=== PATIENT | female | born 1975 | race Asian ===

== ENCOUNTER 2023-08-20 15:47 | Emergency (ER) | payer BC ==
[2023-08-20 15:56] VITALS: BP 121/68; O2SAT 98
--- NOTE | 2023-08-20 15:57 | ED Physician Documentation ---
PD HPI UPPER EXT INJURY - Stated complaint Stated Complaint: R FINGER LAC - Chief complaint Chief Complaint: Laceration - History obtained from History obtained from: Patient - History of Present Illness Location: Right, Finger (thumb) Type of injury: Laceration (cut tip/side of thumb with kitchen utensil at home with avulsion of small portion of skin, but wound will not stop bleeding.) Where injury occurred: Home Timing - onset: How many hours ago (1), Today Timing - details: Abrupt onset, Still present (wound still bleeding steady drip if not direct pressure held.) Review of Systems Neurologic: denies: Focal weakness, Numbness PD PAST MEDICAL HISTORY - Past Medical History Past Medical History: No Neuro: None - Past Surgical History Past Surgical History: No - Allergies Allergies/Adverse Reactions: Allergies Allergy/AdvReac Type Severity Reaction Status Date / Time No Known Drug Allergies Allergy Verified 08/20/23 15:51 - Social History Does the pt smoke?: No Smoking Status: Never smoker Does the pt drink ETOH?: No Does the pt have substance abuse?: No - Immunizations Immunizations are current?: No Immunizations: TDAP >10years/unknown - POLST Patient has POLST: No PD ED PE NORMAL - Vitals Vital signs reviewed: Yes - General General: Alert and oriented X 3, Well developed/nourished - Extremities Extremities: Other (right thumb ulnar side distal tip with avulsion of skin partial thickness with steady oozing of blood if pressure not held. no FB. Not in nailbed. it is about 3x9 mm size. ) - Neuro Neuro: No motor deficit, No sensory deficit Results - Vitals Vitals: Vital Signs - 24 hr 08/20/23 15:51 Temperature 36.5 C Heart Rate 84 Respiratory 16 Rate Blood Pressure 121/68 O2 Saturation 98 Oxygen O2 Source Room air PD Medical Decision Making - ED course Complexity details: considered differential (avulsion of skin to capillary/small vessel layer with ongoing bleeding. Local anesth with Lido decreased bleeding and then cautery of the area stopped bleeding. Xeroform dressing and pressure wrap with coban done. No bleeding. ), d/w patient Departure - Departure Disposition: 01 Home, Self Care Clinical Impression: Skin avulsion Condition: Stable Record reviewed to determine appropriate education?: Yes Instructions: ED Avulsion Dermal Follow-Up: RAFI MACARIO MD [Primary Care Provider] - Comments: Your wound should heal up fine with treating it as a simple laceration. Keep the initial pressure dressing on until tomorrow at least and then remove it and start regular wound care with cleaning soap and water and applying some ointment and Band-Aids. We did do some local anesthetic so the area will be numb for several hours. I did do a heat cautery to the blood vessel area so it should not bleed like it was. There may be very mild simple bleeding if you were to remove the dressing too soon, so keeping it on till tomorrow would be good. Our pharmacy says you did receive a tetanus booster in December 2018 so you are good and up-to-date at this point [email or web address] [email or web address]. This may hurt some later today and this evening so Tylenol or ibuprofen are fine to use. Recheck if signs of infection otherwise this should heal in, filling in the contour with predominantly new skin. There may be slight numbness to the area for several months as the nerve endings grow back. Forms: PCP List Discharge Date/Time: 08/20/23 16:27
== END 2023-08-20 16:27 | disposition home or self-care (01) ==
LOC: ED 15:47
DX: S61.001A Unspecified open wound of right thumb without damage to nail, initial encounter (principal); W26.8XXA Contact with other sharp object(s), not elsewhere classified, initial encounter; Y92.009 Unspecified place in unspecified non-institutional (private) residence as the place of occurrence of the external cause
CPT/HCPCS: 99282; 99283